=== PATIENT | female | born 1960 | race Caucasian/White ===

== ENCOUNTER 2017-05-02 23:41 | Emergency (ER) | payer MEDICAID ==
[~2017-05-02] VITALS: Ht 152.4 cm; Wt 79.5 kg
[2017-05-03 00:11] VITALS: Ht 152.4 cm; Wt 79.5 kg
--- NOTE | 2017-05-03 02:37 | RADRPT ---
PROCEDURE: XR Foot. CLINICAL INDICATION: Great toe pain and swelling. TECHNIQUE: Three views of the left foot. COMPARISON: None available. FINDINGS: No fracture or dislocation is identified. There are dorsal and plantar calcaneal enthesophytes. T here is soft tissue swelling along the foot. There is no soft tissue gas. No cortical lucency or per iosteal reaction is identified to suggest osteomyelitis. IMPRESSION: 1. No fracture or dislocation of the left foot. 2. Soft tissue swelling along the foot, nonspecific. 3. No evidence of gas gangrene or osteomyelitis. RPTAT: HTAR .Cheikh Del Real MD, Date Time Electronically viewed and signed by .Cheikh Del Real MD, on 05/03/2017 02:37 .R/
[2017-05-03 03:01] VITALS: BP 156/71; PULSE 69; RESP 18; TEMP 98.4
--- NOTE | 2017-05-03 05:33 | EN ---
Date/Time of Note Date/Time of Note DATE: 05/03/17 TIME: 05:32 ER Progress Note This patient's care was signed out to me by Rai Marmolejo PA-C. 48-year-old female presents with left great toe pain and swelling, there is soft tissue swelling without evidence any bony abnormalities, including a fracture dislocation. Suspicion for acute gangrene or osteomyelitis is low given the acute presentation. Patient will be discharged home with antibiotics per Rai Marmolejo PA-C. Disposition discharged home stable. DIAGNOSTIC IMAGING REPORT Patient: GREG HEWITT : 1960 Age: 56 Sex: F MR #: [id number] DOS: 05/03/17 0000 Ordering MD: FAMILIA MARMOLEJO PA-C Location: [facility] Room/Bed: PROCEDURE: XR Foot. CLINICAL INDICATION: Great toe pain and swelling. TECHNIQUE: Three views of the left foot. COMPARISON: None available. FINDINGS: No fracture or dislocation is identified. There are dorsal and plantar calcaneal enthesophytes. There is soft tissue swelling along the foot. There is no soft tissue gas. No cortical lucency or periosteal reaction is identified to suggest osteomyelitis. IMPRESSION: 1. No fracture or dislocation of the left foot. 2. Soft tissue swelling along the foot, nonspecific. 3. No evidence of gas gangrene or osteomyelitis. RPTAT: HTAR .Cheikh Del Real MD, MD Date Time Electronically viewed and signed by .Cheikh Del Real MD, on 05/03/2017 02:37 .R/ CC: FAMILIA MARMOLEJO PA-C, ANN PA-C May 03, 2017 05:33
--- NOTE | 2017-05-03 17:01 | ERD ---
ER Documentation Chief Complaint Date/Time DATE: 05/03/17 TIME: 16:57 Chief Complaint L big toe pain x 2 days, HX HTN/DM HPI This patient is a 56-year-old female with past medical history of hypertension and type 2 diabetes presenting to the emergency department with complaints of left great toe pain ongoing intimately for the past 2 days. Seated symptoms include swelling and bruising. The patient denies trauma. Some constant. Symptoms are not improving. She has taken no medication at home for relief of symptoms. No other symptoms reported at this time. ROS All systems reviewed and are negative except as per history of present illness. Allergies Allergies: Coded Allergies: No Known Allergy (Unverified , 05/03/17) PMhx/Soc History of Surgery: Yes () Anesthesia Reaction: No Hx Neurological Disorder: No Hx Respiratory Disorders: No Hx Cardiac Disorders: No Hx Psychiatric Problems: No Hx Miscellaneous Medical Probl: Yes (DM ) Hx Alcohol Use: No Hx Substance Use: No Hx Tobacco Use: No Smoking Status: Never smoker Physical Exam Vitals Vital Signs Date Time Temp Pulse Resp B/P Pulse Ox O2 Delivery O2 Flow Rate FiO2 05/03/17 03:01 98.4 69 18 156/71 98 Room Air 05/03/17 00:11 97.7 85 18 182/86 96 Physical Exam Const: Toxic, well-appearing female in no acute distress. Head: Atraumatic Eyes: Normal Conjunctiva ENT: Normal External Ears, Nose and Mouth. Neck: Full range of motion..~ No meningismus. Resp: Clear to auscultation bilaterally Cardio: Regular rate and rhythm, no murmurs Abd: Soft, non tender, non distended. Normal bowel sounds Skin: No petechiae or rashes Back: No midline or flank tenderness Ext: There is some mild edema noted to the left great toe with associated mild ecchymosis but no obvious deformity or open fracture noted. There is no edema noted proximally to the toe. No lymphatic streaking noted. No significant warmth or erythema noted in the left lower extremity. No other signs of deep tissue infection. Neur: Awake and alert Psych: Normal Mood and Affect Procedures/MDM 56-year-old female presenting to the emergency department with complaints of left great toe pain and swelling. Exam shows: There is some mild edema noted to the left great toe with associated mild ecchymosis but no obvious deformity or open fracture noted. There is no edema noted proximally to the toe. No lymphatic streaking noted. No significant warmth or erythema noted in the left lower extremity. No other signs of deep tissue infection. X-ray series of the left foot were negative and interpreted by the radiologist. The patient is stable for outpatient management with a prescription for doxycycline for likely uncomplicated cellulitis of the left great toe. I have low suspicion for disseminated cellulitis, sepsis, or other emergent conditions. The patient is to have close follow-up with her primary care physician. She is to return here in 48 hours for wound recheck if not improving. She may return sooner for any new or worsening symptoms. Understood and agreed with the discharge plan and diagnosis. PROCEDURE: XR Foot. CLINICAL INDICATION: Great toe pain and swelling. TECHNIQUE: Three views of the left foot. COMPARISON: None available. FINDINGS: No fracture or dislocation is identified. There are dorsal and plantar calcaneal enthesophytes. There is soft tissue swelling along the foot. There is no soft tissue gas. No cortical lucency or periosteal reaction is identified to suggest osteomyelitis. IMPRESSION: 1. No fracture or dislocation of the left foot. 2. Soft tissue swelling along the foot, nonspecific. 3. No evidence of gas gangrene or osteomyelitis. RPTAT: HTAR .Cheikh Del Real MD, MD Date Time Electronically viewed and signed by .Cheikh Del Real MD, on 05/03/2017 02:37 Departure Diagnosis: Primary Impression: Cellulitis Condition: Fair Patient Instructions: Cellulitis Referrals: [facility] YOU HAVE RECEIVED A MEDICAL SCREENING EXAM AND THE RESULTS INDICATE THAT YOU DO NOT HAVE A CONDITION THAT REQUIRES URGENT TREATMENT IN THE EMERGENCY DEPARTMENT. FURTHER EVALUATION AND TREATMENT OF YOUR CONDITION CAN WAIT UNTIL YOU ARE SEEN IN YOUR DOCTORS OFFICE WITHIN THE NEXT 1-2 DAYS. IT IS YOUR RESPONSIBILITY TO MAKE AN APPOINTMENT FOR FOLOW-UP CARE. IF YOU HAVE A PRIMARY DOCTOR --you should call your primary doctor and schedule an appointment IF YOU DO NOT HAVE A PRIMARY DOCTOR YOU CAN CALL OUR PHYSICIAN REFERRAL HOTLINE AT IF YOU CAN NOT AFFORD TO SEE A PHYSICIAN YOU CAN CHOSE FROM THE FOLLOWING [facility] CL[facility] [address] [facility] [address] [facility] [address] [facility] [address] [facility]. [facility] [phone] [address] [facility]. [facility] [address] Additional Instructions: Return to this facility in 2 DAYS for a follow-up exam.Return sooner if your condition worsens. FAMILIA CAMP PA-C May 03, 2017 17:01
== END 2017-05-03 03:00 | disposition home or self-care (01) ==
LOC: FTE 23:41
DX: L03.032 Cellulitis of left toe (principal); I10 Essential (primary) hypertension; E11.9 Type 2 diabetes mellitus without complications
CPT/HCPCS: 73630; Z7502